=== PATIENT | female | born 1995 ===

== ENCOUNTER 2021-04-03 13:56 | Emergency (ER) | payer MEDICAID, OTHER ==
[~2021-04-03] VITALS: Ht 157.5 cm; Wt 79.4 kg
[2021-04-03 14:59] LABS: Basophils # (auto) 0 10 ^3/uL (0-0.2); Basophils % (auto) 0.4 % (0.0-2.0); Eosinophils # (auto) 0 10 ^3/uL (0-0.8); Eosinophils % (auto) 0.2 % (0.0-7.0); Hematocrit 37.8 % (36.0-46.0); Hemoglobin 13.4 g/dL (12.2-16.2); Lymphocytes # (auto) 2.7 10 ^3/uL (0.4-5.4); Lymphocytes % (auto) 25.3 % (10.0-50.0); Mean Corpuscular Hemoglobin 33.1 pg (28.0-32.0); Mean Corpuscular Hgb Conc. 35.3 g/dL (32.0-36.0); Mean Corpuscular Volume 93.8 fL (80.0-100.0); Monocytes # (auto) 0.6 10 ^3/uL (0-1.3); Monocytes % (auto) 5.7 % (0.0-12.0); Neutrophils # (auto) 7.2 10 ^3/uL (1.6-8.6); Neutrophils % (auto) 68.4 % (37.0-80.0); Nucleated Red Blood Cells % 0.1 %; Red Blood Cells 4.03 10^6/uL (4.0-5.20); Red Cell Distribution Width 13.2 % (11.8-14.3); White Blood Cell 10.5 10^3/uL (4.4-10.8)
[2021-04-03 15:18] LABS: INR 0.95 (0.9-1.15); Partial Thromboplastin Time 24.1 sec (23.6-33.0)
[2021-04-03 15:30] LABS: Albumin 3.6 g/dL (3.4-5.0); Calcium 9.2 mg/dL (8.5-10.1); Potassium 3.6 mmol/L (3.5-5.1)
[2021-04-03 15:33] LABS: BUN/Creatinine Ratio 18.9; Bilirubin, Total 0.2 mg/dL (0.2-1.0); Total Protein 6.9 g/dL (6.4-8.2)
[2021-04-03 20:33] VITALS: BP 121/71
== END 2021-04-03 20:38 | disposition home or self-care (01) ==
LOC: ER 14:01
DX: O02.0 Blighted ovum and nonhydatidiform mole (principal); O26.891 Other specified pregnancy related conditions, first trimester; Z3A.11 11 weeks gestation of pregnancy
CPT/HCPCS: 36415; 71046; 76801; 80053; 84439; 84443; 84702; 85025; 85610; 85730; 86850; 86900; 86901

== ENCOUNTER 2023-06-28 12:52 | Emergency (ER) | payer MEDICAID ==
[~2023-06-28] VITALS: Ht 157.5 cm; Wt 66.9 kg
[2023-06-28 12:53] VITALS: TEMP 98.1
[2023-06-28 13:19] VITALS: BP 127/82; PULSE 89; RESP 12; O2SAT 96
== END 2023-06-28 15:27 | disposition home or self-care (01) ==
LOC: ER 12:52
DX: S00.511A Abrasion of lip, initial encounter (principal); R10.2 Pelvic and perineal pain; R41.82 Altered mental status, unspecified; Y04.8XXA Assault by other bodily force, initial encounter; Y93.89 Activity, other specified; Y92.89 Other specified places as the place of occurrence of the external cause; Y99.8 Other external cause status
CPT/HCPCS: 36415; 84702